=== PATIENT | male | born 1935 | race Caucasian/White ===

== ENCOUNTER 2017-03-22 02:38 | Emergency (ER) | payer MEDICARE ==
[2017-03-22] MEDS ORDERED: NS 0.9% 1000 ML* 1,000 ML IV ONE (04:30)
[2017-03-22 05:15] LABS: Urine Bilirubin Negative (Negative); Urine Glucose 1+(50 mg/dL) (Negative); Urine Nitrite Negative (Negative)
[2017-03-22 05:16] LABS: Hematocrit 38 % (42-52); Mean Corpuscular HGB Conc 35 g/dl (31-36); Mean Corpuscular Hemoglobin 31 pg (27-31); Mean Corpuscular Volume 91 fL (80-94); Mean Platelet Volume 8 um3 (7.4-10.4); Red Blood Count 4.16 10^6/ul (4.0-5.4); Red Cell Distribution Width 13 % (10.5-15); White Blood Count 8.6 10^3/ul (3.5-10.8)
[2017-03-22 05:32] LABS: Albumin 3.9 g/dL (3.2-5.2); BUN/Creatinine Ratio 29.7 (8-20); Calcium 9.2 mg/dL (8.6-10.3); EGFR African American 90.7 (>60); EGFR Non-African American 70.5 (>60); Globulin 3.2 g/dL (2-4); Potassium 4.3 mmol/L (3.5-5.0); Total Bilirubin 0.7 mg/dL (0.2-1.0); Total Protein 7.1 g/dL (6.4-8.9)
[2017-03-22] MEDS ORDERED: Iodixanol* (CONTRAST) 320 MG/ML 100 ML SDV IV ONE (06:47)
--- NOTE | 2017-03-22 07:00 | ED ---
Satya Wise Rebecca, scribed for Esther Baileyuel on 03/22/17 at 0429 . Abdominal Pain/Male - HPI Summary HPI Summary: Pt is an 82 y/o M who presents to ED c/o LLQ abdominal pain. Sx began suddenly this morning at approximately 0200 and have been constant since onset. Pain is currently moderate, ranked 4/10. Took Aleve [employer]. Sx aggravated and alleviated by nothing. Pt denies CP, SOB, N/V, fever and chills. Prior similar episodes of pain with a Dx of hiatal hernia. Takes 81 mg ASA daily and is not on any other blood thinners. - History of Current Complaint Chief Complaint: EDAbdPain Stated Complaint: CHEST PAIN Time Seen by Provider: 03/22/17 04:18 Hx Obtained From: Patient Onset/Duration: Sudden Onset, Still Present Timing: Constant Severity Currently: Moderate Pain Intensity: 4 Pain Scale Used: 0-10 Numeric Location: Discrete At: LLQ Aggravating Factor(s): Nothing Alleviating Factor(s): Nothing Associated Signs And Symptoms: Positive: Negative. Negative: Chest Pain, Nausea , Vomiting - Allergies/Home Medications Allergies/Adverse Reactions: Allergies Allergy/AdvReac Type Severity Reaction Status Date / Time Shellfish Allergy Allergy Severe Nausea And Verified 03/22/17 02:48 Vomiting PMH/Surg Hx/FS Hx/Imm Hx Endocrine/Hematology History: Reports: Hx Diabetes Cardiovascular History: Reports: Hx Coronary Artery Disease, Hx Hypertension - W /MEDS, Other Cardiovascular Problems/Disorders - CAD, IDDM II Denies: Hx Congestive Heart Failure GI History: Reports: Hx Gastroesophageal Reflux Disease, Other GI Disorders - GERD History: Reports: Other Problems/Disorders - PROSTATE CA Denies: Hx Dialysis, Hx Renal Disease - Cancer History Cancer Type, Location and Year: prostate, 2000 - Surgical History Surgery Procedure, Year, and Place: PROSTATE Hx Anesthesia Reactions: No - Immunization History Date of Tetanus Vaccine: 2014 Date of Influenza Vaccine: 2014 Infectious Disease History: No Infectious Disease History: Denies: Traveled Outside the [place] in Last 30 Days - Family History Known Family History: Positive: Cardiac Disease, Hypertension - Social History Alcohol Use: Rare Substance Use Type: Reports: None Hx Tobacco Use: Yes Smoking Status (MU): Former Smoker Review of Systems Negative: Fever, Chills Negative: Chest Pain Negative: Shortness Of Breath Positive: Abdominal Pain. Negative: Vomiting, Nausea All Other Systems Reviewed And Are Negative: Yes Physical Exam - Summary Physical Exam Summary: Appearance: Well appearing, no pain distress Skin: warm, dry, reflects adequate perfusion Head/face: normal Eyes: EOMI, AMILCAR ENT: normal Neck: supple, nontender Respiratory: CTA, breath sounds present Cardiovascular: RRR, pulses symmetrical Abdomen: tenderness in the LLQ, surgical scar on the abdomen, soft Bowel: present Musculoskeletal: normal, strength/ROM intact Neuro: normal, sensory motor intact, A&Ox3 Triage Information Reviewed: Yes Vital Signs On Initial Exam: Initial Vitals Temp Pulse Resp BP Pulse Ox 97.6 F 67 14 117/75 93 03/22/17 02:45 03/22/17 02:45 03/22/17 02:45 03/22/17 02:45 03/22/17 02:45 Vital Signs Reviewed: Yes Diagnostics - Vital Signs Vital Signs Temp Pulse Resp BP Pulse Ox 03/22/17 02:45 97.6 F 67 14 117/75 93 - Laboratory Result Diagrams: 03/22/17 05:03 03/22/17 05:03 Lab Statement: Any lab studies that have been ordered have been reviewed, and results considered in the medical decision making process. - Radiology CXR Radiology Interpretation Completed By: ED Physician - Elevated diaphragm - CT CT Abd/Pel CT Interpretation Completed By: Radiologist - Pending radiologist interpretation. See [facility]. - EKG 0441 Cardiac Rate: Bradycardia - 58 bpm EKG Rhythm: Sinus Bradycardia EKG Interpretation: No acute changes. Abdominal Pain Fem Course/Dx - Course Assessment/Plan: Pt is an 82 y/o M who presents to ED c/o LLQ abdominal pain. Sx began suddenly this morning at approximately 0200 and have been constant since onset. Pain is currently moderate, ranked 4/10. Took Aleve [employer]. Sx aggravated and alleviated by nothing. Pt denies CP, SOB, N/V, fever and chills. Prior similar episodes of pain with a Dx of hiatal hernia. Takes 81 mg ASA daily and is not on any other blood thinners. UA negative for UTI. Troponin of 0.00. EKG is sinus nunu with no acute changes. CXR reveals an elevated diaphragm, as read by ED physician. CT Abd/Pel pending. Pt will be signed out, pending disposition, awaiting CT Abd/Pel. - Diagnoses Provider Diagnoses: Abdominal pain Discharge - Discharge Plan Condition: Stable Disposition: OTHER Discharge Disposition Comment: Signed out to , pending disposition, awaiting CT Abd/pel The documentation as recorded by the Satya bello Rebecca accurately reflects the service I personally performed and the decisions made by , Chaim Bailey.
--- NOTE | 2017-03-22 09:10 | RAD ---
Indication: Abdominal pain. Single frontal view of the chest performed at 0455 hours was reviewed. Comparison is made with previous exam dated January 06, 2013. No mediastinal shift is noted. The heart is of normal size and configuration. Elevated right hemidiaphragm is noted. Lung aguilar appear clear. IMPRESSION: NO ACTIVE CARDIOPULMONARY DISEASE IS NOTED. ELEVATED RIGHT HEMIDIAPHRAGM WITH NO DEFINITE PNEUMONIA.
[2017-03-22 09:13] VITALS: BP 151/80
--- NOTE | 2017-03-22 13:50 | RAD ---
Indication: Left lower quadrant pain. Contrast: Administered 100.2 ml of VISAPAQUE 320 mg/ml CT of the abdomen and pelvis was performed without oral or IV contrast administration. Comparison is made to prior exam dated May 04, 2015. Lung bases demonstrate no pleural fluid, nodules or masses. There is an elevated hemidiaphragm on the right. The liver is normal in size. No focal lesions or intrahepatic duct dilatation is noted. The spleen is normal in size. The pancreas demonstrates no mass or pancreatic duct dilatation. The common duct is not dilated. No adrenal lesions are noted. The kidneys demonstrate left renal calculus measuring up to 4 mm. No hydronephrosis is noted in either kidney. Atherosclerotic aorta is noted. Small bowel demonstrates no abnormal dilatation. CT of the pelvis demonstrates distended cecum. Moderately dilated loops of bowel are noted. The colon is filled with stool. Atherosclerotic aorta is noted. The urinary bladder is unremarkable. No hernias are noted. IMPRESSION: Cholelithiasis. Elevated right hemidiaphragm. Diverticulosis without definite evidence of diverticulitis.
--- NOTE | 2017-03-22 16:02 | ED ---
Wanda Wise Alfonso, scribed for Donta Rivera MD on 03/22/17 at 0758 . Progress - Progress Note Progress Note: This patient was signed out from Dr. Bailey, pending disposition, awaiting CT A/ P. Dr. Bailey requested if the CT A/P is negative that the patient be discharge home with PCP follow up. CT A/P reveals, per radiologist, right hemidiaphragmatic paralysis. Gallstone. Sigmoid diverticulosis without diverticulitis. Cecal dilation without obstruction, volvulus or bascule, possibly a coal ileus or a recently decompressed bascule or volvulus. Minimal right lower quadrant mesenteric edema and free fluid. ED physician has reviewed this radiology report and agrees. At 0747 the patient is if feeling a lot better. He tolerated PO. No nausea or vomiting. He is passing gas, therefore patient will be discharged home. The patients condition is stable and will be discharged to home with Dx of abdominal pain. The patient is hemodynamically stable, alert and oriented x3. - Results/Orders Results/Orders: CT A/P reveals, per radiologist, right hemidiaphragmatic paralysis. Gallstone. Sigmoid diverticulosis without diverticulitis. Cecal dilation without obstruction, volvulus or bascule, possibly a coal ileus or a recently decompressed bascule or volvulus. Minimal right lower quadrant mesenteric edema and free fluid. ED physician has reviewed this radiology report and agrees. Re-Evaluation - Re-Evaluation First Eval Re-Evaluation Time: 07:47 Change: Improved Comment: the patient is if feeling a lot better. He tolerated PO. No nausea or vomiting. He is passing gas. Course/Dx - Diagnoses Provider Diagnoses: Abdominal pain The documentation as recorded by the Wanda bello Alfonso accurately reflects the service I personally performed and the decisions made by me, Donta Rivera MD.
== END 2017-03-22 09:13 ==
LOC: ED 02:38
DX: R10.32 Left lower quadrant pain (principal); R00.2 Palpitations; Z87.891 Personal history of nicotine dependence; K80.20 Calculus of gallbladder without cholecystitis without obstruction
CPT/HCPCS: 36415; 71010; 74177; 80053; 81003; 83690; 84484; 85025; 93005; 99284; Q9967

== ENCOUNTER 2019-05-10 06:30 | Emergency (ER) | payer MEDICARE ==
--- NOTE | 2019-05-10 06:41 | ED ---
Dizziness - HPI Summary HPI Summary: 84 year old male with a past medical history of insulin dependant diabetes type 2 and multiple NV, HTN and hyperlipidemia presenting with a chief complaint of dizziness this morning at 0400. He woke this morning and checked his blood sugar which he reports as 123. He then gave himself 50 units of insulin and went outside to sweep snow at 0400. He denies having breakfast. He states while sweeping snow he got very light headed and sweaty and had to stop and go inside and sit down. He denies associated symptoms such as chest pain, abdominal pain, arm pain, jaw pain, SOB. He states once inside his gave him some grape juice and he felt better. He then called the ambulance. EMS got a BG of 92. Patient was stable and joking upon arrival. Pt states his previous MIs presented just as a pressure and had an atypical presentation, but sates his current states is not similar to those previous episodes. Pt denies recent tobacco, alcohol or recreational drug use. Pt denies recent illness, travel, surgery, fever, chest pain, abdominal pain, arm pain, jaw pain, pain with urination, cough, hx afib. - History Of Current Complaint Chief Complaint: EDDizziness Stated Complaint: DIZZINESS PER EMS Hx Obtained From: Patient Onset/Duration: Resolved Timing: Intermittent Episode Lasting - minutes Severity Initially: Severe Severity Currently: Severe Character: Lightheaded, Dizzy Aggravating Factor(s): Exertion Alleviating Factor(s): Rest, Glucose Associated Signs And Symptoms: Positive: Nausea, Diaphoresis, Decreased Oral Intake - did not eat breakfast after injecting insulin. Negative: Vomiting, Chest Pain, SOB, Visual Changes, Change In Medication Related History: Similar Episode/Dx as - 2 NV in the past, has had hypoglycemic episodes in the past which were similar. - Risk Factors Cardiac Risk Factors: Hypertension, Smoking, Diabetes, Prior NV, CAD CVA Risk Factor: Hypertension, Diabetes, Smoking - Allergies/Home Medications Allergies/Adverse Reactions: Allergies Allergy/AdvReac Type Severity Reaction Status Date / Time MS Shellfish Allergy Allergy Severe Nausea And Verified 04/27/17 15:08 [Shellfish Allergy] Vomiting Home Medications: Home Medications Insulin Glargine,Hum.[email or web address].[email or web address] [Lantus Solostar 5x3 ML PENS] 40 units SUBCUT DAILY 05/10/19 [History Confirmed 05/10/19] PMH/Surg Hx/FS Hx/Imm Hx Endocrine/Hematology History: Reports: Hx Diabetes Cardiovascular History: Reports: Hx Coronary Artery Disease, Hx Hypertension - W /MEDS, Other Cardiovascular Problems/Disorders - CAD, IDDM II Denies: Hx Congestive Heart Failure GI History: Reports: Hx Gastroesophageal Reflux Disease, Other GI Disorders - GERD History: Reports: Other Problems/Disorders - PROSTATE CA Denies: Hx Dialysis, Hx Renal Disease - Cancer History Cancer Type, Location and Year: prostate, 2000 - Surgical History Surgery Procedure, Year, and Place: PROSTATE Hx Anesthesia Reactions: No - Immunization History Date of Tetanus Vaccine: unk Date of Influenza Vaccine: unk Infectious Disease History: No Infectious Disease History: Denies: Traveled Outside the [place] in Last 30 Days - Family History Known Family History: Positive: Cardiac Disease, Hypertension - Social History Alcohol Use: Rare Substance Use Type: Reports: None Hx Tobacco Use: Yes Smoking Status (MU): Former Smoker Review of Systems Constitutional: Negative Eyes: Negative Cardiovascular: Negative Respiratory: Negative Gastrointestinal: Negative Musculoskeletal: Negative Skin: Negative Psychological: Normal All Other Systems Reviewed And Are Negative: Yes Physical Exam Triage Information Reviewed: Yes Vital Signs On Initial Exam: Initial Vitals Temp Pulse Resp BP Pulse Ox 96.5 F 77 16 127/62 95 05/10/19 06:33 05/10/19 06:33 05/10/19 06:33 05/10/19 06:33 05/10/19 06:33 Vital Signs Reviewed: Yes Appearance: Positive: Well-Appearing, No Pain Distress, Well-Nourished Skin: Positive: Warm, Skin Color Reflects Adequate Perfusion Head/Face: Positive: Normal Head/Face Inspection Eyes: Positive: Normal, EOMI Respiratory/Lung Sounds: Positive: Clear to Auscultation, Breath Sounds Present Cardiovascular: Positive: Normal, RRR, S1, S2 Abdomen Description: Positive: Nontender Bowel Sounds: Positive: Present Neurological: Positive: Alert, Oriented to Person Place, Time, Facial Symmetry, Speech Normal. Negative: Receptive Aphasia, Expressive Aphasia, Facial Droop, Heel to Toe, Finger to Nose Psychiatric: Positive: Normal AVPU Assessment: Alert Procedures - Sedation Patient Received Moderate/Deep Sedation with Procedure: No Diagnostics - Vital Signs Vital Signs Temp Pulse Resp BP Pulse Ox 05/10/19 06:33 96.5 F 77 16 127/62 95 - Laboratory Result Diagrams: 05/10/19 07:07 05/10/19 07:07 Lab Statement: Any lab studies that have been ordered have been reviewed, and results considered in the medical decision making process. Re-Evaluation - Re-Evaluation First Eval Re-Evaluation Time: 07:49 Change: Unchanged - Pt feel light headed now, BG 60. Pt given apple and orange juice Second Eval Re-Evaluation Time: 08:29 Change: Improved Comment: Pt feels much better, POC finger stick glucose is 119. Pt feels ready for D/C Dizzy Course/Dx - Course Course Of Treatment: Pr eas evaluated in the emergency department for dizziness after giving himeself 50 unites of insulin this moring with a prior BG of 123 and then going to sweep snow. Pt was seen and examined. EKG was ordered which showed NSR at 68 bpm. 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 No ST elevation but there are inverted T waves in lead 3. These findings are unchanged when compared to past EKG from 03/22/19. Labratory studies were ordered and showed No electrolyte abnormalities other than hypoglycemia with a blood glucose of 60. BUN/creatinine were elevated but this is his baseline. CBC revealed anemia which is also a chronic disorder she is currently a symptomatic for hypovolemia. A lactic acid returned at 2.9 which is likely due to his hypoglycemic episode earlier this morning. He was given 1L of LR to manage his elevated lactic acid level. Troponin I resulted as 0. Due to the patients blood glucose of 60 at 0707 he was given fruit juice. [id number] blood glucose fingerstick was rechecked at 0826 and found to be 119. He was stable at the time of discharge and was asymptomatic. PT was informed of discharge instructions and agrees with the plan. Pt is to follow up with PCP in 2-3 days. 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 To avoid this in the future please make sure to eat after injection with insulin. I also want you to follow-up with your primary care doctor for further education regarding management of your diabetes particularly with dosing insulin based on her blood glucose level. I have attached information regarding things to look for which are common signs of hypoglycemia. If you experience more signs in the future please consume a beverage high and glucose or sugary candy. Please follow-up with your primary care physician in 2-3 days for further evaluation and management. If you develop any new symptoms or worsening symptoms please return to the emergency department immediately. Return to activity as tolerated. Please be sure to check your blood sugar more regularly today to ensure you do not get rebound hypoglycemia due to the high level of insulin administered this morning. - Billing Disposition and Condition Condition: IMPROVED Disposition: Home - Attestation Statements Provider Attestation: I was available for consult. This patient was seen by the SHIRA. The patient was not presented to, seen by, or examined by me. -Sony
[2019-05-10 07:16] LABS: ABS Eosinophils 0.1 10^3/ul (0-0.6); ABS Lymphocytes 0.7 10^3/ul (1.0-4.8); ABS Monocytes 0.7 10^3/ul (0-0.8); ABS Neutrophils 6.1 10^3/ul (1.5-7.7); Eosinophil % 1.1 %; Hematocrit 36 % (42-52); Hemoglobin 12.3 g/dL (14.0-18.0); Lymphocyte % 9.4 %; Mean Corpuscular HGB Conc 35 g/dL (31-36); Mean Corpuscular Hemoglobin 32 pg (27-31); Mean Corpuscular Volume 91 fL (80-94); Mean Platelet Volume 7.4 fL (7.4-10.4); Platelet Count 220 10^3/uL (150-450); Red Blood Count 3.91 10^6 /uL (4.18-5.48); Red Cell Distribution Width 13 % (10-15); White Blood Count 7.7 10^3/uL (3.5-10.8)
[2019-05-10 07:33] LABS: Albumin 4.1 g/dL (3.2-5.2); Albumin/Globulin Ratio 1.4 (1-3); BUN/Creatinine Ratio 25.4 (8-20); Calcium 9.4 mg/dL (8.6-10.3); EGFR African American 59.3 (>60); Globulin 2.9 g/dL (2-4); Magnesium 1.9 mg/dL (1.9-2.7); Potassium 3.5 mmol/L (3.5-5.0); Total Bilirubin 0.4 mg/dL (0.2-1.0)
[2019-05-10 08:09] LABS: TSH (Thyroid Stimulating Horm) 2.95 mcIU/mL (0.34-5.60)
[2019-05-10] MEDS ORDERED: Lactated Ringers 1000 ML Bag* 1,000 ML IV ONE (09:00)
[2019-05-10 09:11] VITALS: BP 131/70
== END 2019-05-10 09:15 | disposition home or self-care (01) ==
LOC: ED 06:30
DX: E09.649 Drug or chemical induced diabetes mellitus with hypoglycemia without coma (principal); T38.3X5A Adverse effect of insulin and oral hypoglycemic [antidiabetic] drugs, initial encounter; Y92.009 Unspecified place in unspecified non-institutional (private) residence as the place of occurrence of the external cause; Z79.4 Long term (current) use of insulin; I44.7 Left bundle-branch block, unspecified; I25.10 Atherosclerotic heart disease of native coronary artery without angina pectoris; I10 Essential (primary) hypertension; Z88.2 Allergy status to sulfonamides; Z87.891 Personal history of nicotine dependence
CPT/HCPCS: 36415; 80053; 83605; 83735; 84443; 84484; 85025; 93005; 96360; 99283

== ENCOUNTER 2023-03-15 06:31 | Observation (INO) ==
[2023-03-15 06:55] LABS: Urine Appearance Cloudy; Urine Bilirubin Negative (Negative); Urine Blood 2+ (Negative); Urine Color Yellow; Urine Glucose 1+(50 mg/dL) (Negative); Urine Ketones Negative (Negative); Urine Nitrite Negative (Negative); Urine Protein 2+(100 mg/dL) (Negative); Urine Urobilinogen Negative (Negative)
[2023-03-15 07:01] LABS: Urine Bacteria Absent (Absent); Urine Red Blood Cell 3+(>10/hpf) (Absent); Urine Squamous Epithelial Cell Present (Absent); Urine White Blood Cell Trace(0-5/hpf) (Absent)
[2023-03-15] MEDS ORDERED: NS 0.9% 1000 ml BAG 1,000 ML IV ONE (07:38)
[2023-03-15 07:58] LABS: ABS Lymphocytes 0.6 10^3/uL (1.0-4.8); ABS Monocytes 0.4 10^3/uL (0.0-1.1); ABS Neutrophils 6.3 10^3/uL (1.5-7.6); Eosinophil % 0.5 %; Hematocrit 36.6 % (38-53); Hemoglobin 12.8 g/dL (13.2-16.3); Lymphocyte % 8.2 %; Mean Corpuscular Hemoglobin 32.1 pg (27-33); Mean Corpuscular Volume 91.6 fL (80-97); Mean Platelet Volume 7.1 fL (7.5-11.2); Nucleated Red Blood Cells % 0.1 /100 WBC (0.0-0.4); Platelet Count 252 10^3/uL (150-450); Red Blood Count 3.99 10^6/uL (4.06-5.63); Red Cell Distribution Width 13.3 % (12-17); White Blood Count 7.4 10^3/uL (3.6-10.2)
[2023-03-15 08:08] LABS: Albumin 3.9 g/dL (3.2-5.2); Calcium 8.8 mg/dL (8.6-10.3); Magnesium 1.7 mg/dL (1.9-2.7); Potassium 4.9 mmol/L (3.5-5.0); Total Bilirubin 0.7 mg/dL (0.2-1.0)
[2023-03-15] MEDS ORDERED: Ondansetron 4 mg VIAL 2 MG/ML 2 ml VIAL IV ONE (08:13)
[2023-03-15] MEDS ORDERED: Morphine 4 MG/ML VIAL (1 ml) IV ONE (08:13)
[2023-03-15 08:14] LABS: Albumin/Globulin Ratio 1.1 (1-3); Creatinine, Serum 2.17 mg/dL (0.67-1.17); Globulin 3.4 g/dL (2-4); Total Protein 7.3 g/dL (6.4-8.9); eGFR CKD-EPI 28.4 (>60)
[2023-03-15 08:16] LABS: INR 1.01 (0.83-1.13)
[2023-03-15 09:49] LABS: High Sensitivity Troponin 1 Hr 8 pg/mL (<20)
[2023-03-15] MEDS ORDERED: fentaNYL 100 mcg/2 ml 50 MCG/ML VIAL IV PRN (10:27)
[2023-03-15] MEDS ORDERED: Naloxone 0.4 mg VIAL 0.4 mg/ml 1 ml VIAL IV PRN (10:27)
[2023-03-15] MEDS ORDERED: Ondansetron 4 mg VIAL 2 MG/ML 2 ml VIAL IV PRN ×2 (10:27→10:59)
[2023-03-15] MEDS ORDERED: oxyCODONE/Acetamin 5/325 mg TAB PO PRN (10:27)
[2023-03-15] MEDS ORDERED: Insulin GLARGINE 100 un/ml 10 ml VIAL SUBCUT ONE (10:58)
[2023-03-15] MEDS ORDERED: Al Hydrox/Mg Hydrox/Simet LIQ 30 ML UDC PO PRN (10:59)
[2023-03-15] MEDS ORDERED: Polyethylene Glycol 3350 17 GM PACKET PO PRN (10:59)
[2023-03-15] MEDS ORDERED: cefTRIAXone 1 gm/50 mL D5W 1 GM/50 ML BAG IV ONE (11:03)
[2023-03-15] MEDS ORDERED: Dextrose 50% Syringe 50 ml 25 GM/50 ML SYRINGE IV PUSH PRN (11:03)
[2023-03-15] MEDS ORDERED: Ondansetron 4 mg VIAL 2 MG/ML 2 ml VIAL ONE (12:54)
[2023-03-15] MEDS ORDERED: fentaNYL 100 mcg/2 ml 50 MCG/ML VIAL ONE (12:54)
[2023-03-15] MEDS ORDERED: Dexamethasone IV 4 MG/ML VIAL 1 ml VIAL ONE (12:54)
[2023-03-15] MEDS ORDERED: Lidocaine 2% PF 5 ML VIAL ONE (12:58)
[2023-03-15] MEDS ORDERED: Iohexol 180 (CONTRAST) 10 ML SDV IV ONE (13:08)
[2023-03-15] MEDS: Heparin 5000 UNITS/ML 1 mL VIAL SUBCUT SCH (22:02)
[2023-03-16] MEDS: Heparin 5000 UNITS/ML 1 mL VIAL SUBCUT SCH (05:34)
[2023-03-16 06:30] LABS: ABS Lymphocytes 0.9 10^3/uL (1.0-4.8); ABS Monocytes 0.4 10^3/uL (0.0-1.1); ABS Neutrophils 4.8 10^3/uL (1.5-7.6); Hematocrit 35.5 % (38-53); Hemoglobin 12.3 g/dL (13.2-16.3); Lymphocyte % 14.9 %; Mean Corpuscular Hemoglobin 31.9 pg (27-33); Mean Corpuscular Hgb Conc 34.7 g/dL (31-36); Mean Platelet Volume 7.5 fL (7.5-11.2); Nucleated Red Blood Cells % 0.1 /100 WBC (0.0-0.4); Platelet Count 256 10^3/uL (150-450); Red Blood Count 3.86 10^6/uL (4.06-5.63); Red Cell Distribution Width 13.5 % (12-17); White Blood Count 6.1 10^3/uL (3.6-10.2)
[2023-03-16 06:59] LABS: Calcium 8.6 mg/dL (8.6-10.3); Creatinine, Serum 1.78 mg/dL (0.67-1.17); Magnesium 1.6 mg/dL (1.9-2.7); Potassium 4.7 mmol/L (3.5-5.0)
[2023-03-16] MEDS ORDERED: Magnesium Sulfate IV 3 GM in NS 0.9% 100 ml BAG 100 ML IVPB ONE (08:00)
[2023-03-16] MEDS ORDERED: Insulin GLARGINE 100 un/ml 10 ml VIAL SUBCUT SCH (09:00)
[2023-03-16 09:33] VITALS: BP 122/71
== END 2023-03-16 11:38 | disposition home or self-care (01) ==
LOC: ED 06:31 → EDHOLD 06:31 → MED 10:59 → SUATTDRO 10:59 → MED 13:55
PROVIDERS: ADMIT Pediatrics; ATTEND Internal Medicine